=== PATIENT | female | born 1985 | race Caucasian/White ===

== ENCOUNTER → 2017-05-11 | Outpatient (CLI) | payer OTHER ==
[~2017-05-11] MED LIST: IOHEXOL 300 MG/ML 50 ML VIAL. INT UTERIN ONE
[2017-05-11 08:14] LABS: PREG TEST PT QUAL NEGATIVE (NEG)
--- NOTE | 2017-05-11 09:30 | RAD ---
Hysterosalpingogram HISTORY: Infertility COMPARISON: None TECHNIQUE: Patient was informed of the risks to include pain, infection, bleeding, allergic reaction. All questions were answered. Patient signed a written consent form for hysterosalpingogram. Patient was placed in a supine position on the fluoroscopy table. External skin surface was cleansed with Betadine solution. Speculum was inserted. Cervix was cleansed with Betadine solution. HSG catheter was inserted and secured with balloon inflation. Contrast was injected during fluoroscopic visualization, 8 cc of Omnipaque 300. The balloon was deflated and catheter removed. Speculum was removed. There were no immediate complications. FINDINGS: No focal filling defect is identified of the uterus. Both fallopian tubes are patent. Cervix is patent. There is somewhat round area of displacement of the pooling contrast in the left adnexal region. Fluoroscopy time: 30 seconds, 7 images. IMPRESSION: 1. Both fallopian tubes are patent. There is a round area displacement of pooling contrast in the left adnexal region, underlying adnexal lesion/cyst not excluded. Electronically signed by: Lane Taylor MD (05/11/2017 9:27 AM) [facility]
== END | disposition home or self-care (01) ==
LOC: RAD 07:37
PROVIDERS: ATTEND Obstetrics & Gynecology
DX: N97.1 Female infertility of tubal origin (principal); Z98.890 Other specified postprocedural states
CPT/HCPCS: 58340; 74740; 84703; Q9967

== ENCOUNTER 2017-11-23 09:39 | Emergency (ER) | payer OTHER ==
[~2017-11-23] VITALS: Ht 167.6 cm; Wt 121.6 kg
[2017-11-23 09:56] VITALS: BP 145/87
--- NOTE | 2017-11-23 09:56 | EKG ---
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
--- NOTE | 2017-11-23 10:08 | RAD ---
Chest, PA and Lateral: Technique: PA and lateral views of the chest were obtained. History: Chest pain, weakness, headache. Comparison: None. Findings: The heart and pulmonary vasculature appear within normal limits. The lungs are clear. The pleural margins are clear. Impression: No acute chest process is seen. Electronically signed by: Benjamin Riojas MD (11/23/2017 10:05 AM) [id number]
[2017-11-23 10:11] LABS: AMPHETAMINE/METHAMPHETAMINE NEG (NEG); BARBITURATES NEG (NEG); BENZODIAZEPINES NEG (NEG); CANNABINOIDS NEG (NEG); COCAINE NEG (NEG); METHADONE NEG (NEG); OPIATES NEG (NEG); PHENCYCLIDINE NEG (NEG)
[2017-11-23] MEDS ORDERED: FAMOTIDINE 20 MG/2 ML VIAL IVP ONE (10:15)
--- NOTE | 2017-11-23 10:35 | RAD ---
Right upper quadrant ultrasound dated 11/23/2017 10:05 AM. Comparison: None Clinical Indication: DX: Substernal and RUQ abd pain x 2 weeks IMP: Obese patient-limited study -Patient had a glass of milk 1 1/2 hrs ago-GB somewhat contracted but no stones seen . Findings: The liver is homogeneous in echotexture with no evidence of focal hepatic mass. Intrahepatic and extra hepatic biliary ducts are normal in caliber. The common bile duct measures 2.5 mm. Gallbladder appears somewhat contracted. No apparent shadowing stone or wall thickening. No pericholecystic fluid. Right kidney measures 10.6 cm in length without hydronephrosis. Left kidney was not imaged. Pancreas aorta and IVC not well evaluated due to overlying bowel gas. No significant ascites. IMPRESSION: Limited exam. No apparent acute abnormality. Electronically signed by: Compa Andersen MD (11/23/2017 10:31 AM) [facility]
[2017-11-23 10:40] LABS: BASO # 0.1 x10^3/uL (0.0-0.2); BASO % 1 % (0-3); EOS % 1 % (0-3); HEMATOCRIT 38.3 % (36.0-47.0); LYMPH # 1.2 x10^3/uL (1.0-4.8); LYMPH % 16 % (24-48); MEAN CORPUSCULAR HEMOGLOBIN 28 pg (25-35); MEAN CORPUSCULAR HGB CONC 34 g/dL (31-37); MEAN CORPUSCULAR VOLUME 82 fL (79-100); MONO # 0.5 x10^3/uL (0.0-1.1); MONO % 7 % (0-9); NEUT # 6.1 x10^3uL (1.8-7.7); NEUT % 77 % (31-73); PLATELET COUNT 195 x10^3/uL (140-400); RED BLOOD COUNT 4.67 x10^6/uL (3.50-5.40); RED CELL DISTRIBUTION WIDTH 13.8 % (11.5-14.5)
--- NOTE | 2017-11-23 10:52 | PHYS DOC ---
Past History Past Medical History: Other Alcohol Use: Rarely Drug Use: None Adult General Chief Complaint Chief Complaint: CHEST PAIN HPI HPI Patient is a 32 year old female who presents with complaining of intermittent episodes of left-sided chest pain for the last 2 weeks that usually happens once a day and last for several hours and improved with taking Powerade as an aching pain without radiation. Patient complaining of nausea and palpitations without shortness of breath, fever and chills, cough and congestion. Patient seen by her primary care physician and had negative labs and exam but she states she didn't feel better. Patient complaining of diarrhea since last night with 5 episodes of loose bowel. Patient complaining of nasal congestion and nonproductive cough for a few days. Patient also complaining of cold sore for the last few days and started on acyclovir. Patient does not have cardiac risk factors. Review of Systems Review of Systems Constitutional: Denies fever or chills [] Eyes: Denies change in visual acuity, redness, or eye pain [] HENT: Reports nasal congestion Respiratory: Reports cough Cardiovascular: No additional information not addressed in HPI [] GI: Denies abdominal pain, nausea, vomiting, bloody stools or diarrhea [] : Denies dysuria or hematuria [] Musculoskeletal: Denies back pain or joint pain [] Integument: Denies rash or skin lesions [] Neurologic: Denies headache, focal weakness or sensory changes [] Endocrine: Denies polyuria or polydipsia [] All other systems were reviewed and found to be within normal limits, except as documented in this note. Current Medications Current Medications Current Medications Medications (Trade) Dose Ordered Sig/Julien Start Time Stop Time Status Last Admin Dose Admin Famotidine (Pepcid Vial) 20 mg 1X ONCE 11/23/17 10:15 11/23/17 10:16 DC Multi-Ingredient Mouthwash/Gargle (Gi Cocktail) 20 ml 1X ONCE 11/23/17 10:45 11/23/17 10:46 UNV Allergies Allergies Allergies Coded Allergies Type Severity Reaction Last Updated Verified No Known Drug Allergies 05/11/17 No Physical Exam Physical Exam Constitutional: Well developed, well nourished, mild distress, non-toxic appearance, morbidly obese. [] HENT: Normocephalic, atraumatic, oropharynx moist, no oral exudates, nose normal , cold sore. [] Eyes: PERRLA, EOMI, conjunctiva normal, no discharge. [] Neck: Normal range of motion, no tenderness, supple, no stridor. [] Cardiovascular:Heart rate regular rhythm, no murmur [] Lungs & Thorax: Bilateral breath sounds clear to auscultation [] Abdomen: Bowel sounds normal, soft, no tenderness, no masses, no pulsatile masses. [] Skin: Warm, dry, no erythema, no rash. [] Back: No tenderness, no CVA tenderness. [] Extremities: No tenderness, no cyanosis, no clubbing, ROM intact, no edema. [] Neurologic: Alert and oriented X 3, normal motor function, normal sensory function, no focal deficits noted. [] Psychologic: Affect normal, judgement normal, mood normal. [] Current Patient Data Vital Signs Vital Signs Date Time Temp Pulse Resp B/P (MAP) Pulse Ox O2 Delivery O2 Flow Rate FiO2 11/23/17 09:56 97.9 73 18 98 Lab Results Laboratory Tests Test 11/23/17 09:45 Urine Opiates Screen Neg (NEG) Urine Methadone Screen Neg (NEG) Urine Barbiturates Neg (NEG) Urine Phencyclidine Screen Neg (NEG) Urine Amphetamine/Methamphetamine Neg (NEG) Urine Benzodiazepines Screen Neg (NEG) Urine Cocaine Screen Neg (NEG) Urine Cannabinoids Screen Neg (NEG) Urine Ethyl Alcohol Neg (NEG) EKG EKG EKG interpreted by me. EKG at 0 850 showed normal sinus rhythm at rate of 72, no acute ST and T-wave abnormalities Radiology/Procedures Radiology/Procedures [] Course & Med Decision Making Course & Med Decision Making Pertinent Labs and Imaging studies reviewed. (See chart for details) discharge: I've spoken with the patient and/or caregivers. I've explained the patient's condition, diagnosis and treatment plan based on information available to me at this time. I've answered the patient's and/or caregivers questions and addressed any concerns. The patient and/or caregivers have a good understanding the patient's diagnosis, condition and treatment plan as can be expected at this point. Vital signs have been stabilized. The patient's condition is stable for discharge from the emergency department. The patient will pursue further outpatient evaluation with her primary care provider or other designated consulting physician as outlined in the discharge instructions. Patient and/or caregivers are agreeable to this plan of care and follow-up instructions have been explained in detail. The patient and/or caregivers have received these instructions in written format and expressed understanding of these discharge instructions. The patient and her caregivers are aware that if any significant change in condition or worsening of symptoms should prompt him to immediately return to this of the closest emergency department. If an emergent department is not readily available I would encourage him to call 911. Dragon Disclaimer Dragon Disclaimer This electronic medical record was generated, in whole or in part, using a voice recognition dictation system. Departure Departure: Impression: Primary Impression: Musculoskeletal chest pain Additional Impressions: Viral syndrome Morbidly obese Disposition: HOME, SELF-CARE (at) Condition: IMPROVED Referrals: ALICIA ROWLEY MD (PCP) Patient Instructions: Musculoskeletal Pain, Viral Syndrome Additional Instructions: Drink plenty of liquids Follow-up with your primary care physician in 3-5 days Return to ER if not getting better Scripts Hydrocodone/Chlorphen P-Stirex (Tussionex Pennkinetic Susp) 115 Ml Ibeth.er.12h 5 ML PO BID, #60 ML Prov: GILA ROMERO MD 11/23/17 Problem Qualifiers GILA ROMERO MD Nov 23, 2017 10:52
[2017-11-23] MEDS ORDERED: LIDO:MAALOX 1:1 20 ML SINGLE DOSE. PO ONE (11:00)
[2017-11-23 11:03] LABS: ALBUMIN 3.4 g/dL (3.4-5.0); ALBUMIN/GLOBULIN RATIO 0.8 (1.0-1.7); CALCIUM 9.1 mg/dL (8.5-10.1); CREATININE 0.8 mg/dL (0.6-1.0); GFR 84.2; MAGNESIUM 2.3 mg/dL (1.8-2.4); TOTAL BILIRUBIN 0.3 mg/dL (0.2-1.0); TOTAL PROTEIN 7.9 g/dL (6.4-8.2)
[2017-11-23] MEDS ORDERED: HYDR115S2 PO (11:38)
== END 2017-11-23 11:58 | disposition home or self-care (01) ==
LOC: ER 09:39
DX: R07.89 Other chest pain (principal); B34.9 Viral infection, unspecified; E66.01 Morbid (severe) obesity due to excess calories; Z68.41 Body mass index [BMI] 40.0-44.9, adult
CPT/HCPCS: 36415; 71046; 76705; 80053; 80307; 82550; 83690; 83735; 83880; 84484; 85025; 85379; 93005; 99285-25; G0479

== ENCOUNTER 2017-11-25 12:45 | Emergency (ER) | payer OTHER ==
[~2017-11-25] VITALS: Ht 167.6 cm; Wt 121.6 kg
[2017-11-25 12:45] VITALS: BP 132/64
[~2017-11-25 12:45] MED LIST changes: +HYDR115S2 PO; -IOHEXOL 300 MG/ML 50 ML VIAL. INT UTERIN ONE
--- NOTE | 2017-11-25 13:16 | EKG ---
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
--- NOTE | 2017-11-25 13:25 | PHYS DOC ---
Past History Past Medical History: Other Alcohol Use: Rarely Drug Use: None Adult General Chief Complaint Chief Complaint: SHORTNESS OF BREATH HPI HPI Patient is a 32 year old female who presents with complaining of episode of chest pain for 2 weeks and one episode of palpitation that started up last night with chest pain and not feeling right. Patient was seen in this emergency room 2 days ago with the same complaint with negative evaluation including cardiac enzyme and labs and EKG and chest x-ray. Review of Systems Review of Systems Constitutional: Denies fever or chills [] Eyes: Denies change in visual acuity, redness, or eye pain [] HENT: Denies nasal congestion or sore throat [] Respiratory: Denies cough or shortness of breath [] Cardiovascular: No additional information not addressed in HPI [] GI: Denies abdominal pain, nausea, vomiting, bloody stools or diarrhea [] : Denies dysuria or hematuria [] Musculoskeletal: Denies back pain or joint pain [] Integument: Denies rash or skin lesions [] Neurologic: Denies headache, focal weakness or sensory changes [] Endocrine: Denies polyuria or polydipsia [] All other systems were reviewed and found to be within normal limits, except as documented in this note. Current Medications Current Medications Current Medications Medications (Trade) Dose Ordered Sig/Julien Start Time Stop Time Status Last Admin Dose Admin Hydroxyzine HCl (Atarax) 25 mg 1X STAT 11/25/17 13:10 11/25/17 13:11 UNV Allergies Allergies Allergies Coded Allergies Type Severity Reaction Last Updated Verified No Known Drug Allergies 05/11/17 No Physical Exam Physical Exam Constitutional: Well developed, well nourished, mild distress, non-toxic appearance, morbidly obese. [] HENT: Normocephalic, atraumatic Eyes: PERRLA, EOMI, conjunctiva normal, no discharge. [] Neck: Normal range of motion, no tenderness, supple, no stridor. [] Cardiovascular:Heart rate regular rhythm, no murmur [] Lungs & Thorax: Bilateral breath sounds clear to auscultation [] Abdomen: Bowel sounds normal, soft, no tenderness, no masses, no pulsatile masses. [] Skin: Warm, dry, no erythema, no rash. [] Back: No tenderness, no CVA tenderness. [] Extremities: No tenderness, no cyanosis, no clubbing, ROM intact, no edema. [] Neurologic: Alert and oriented X 3, normal motor function, normal sensory function, no focal deficits noted. [] Psychologic: Affect anxious, judgement normal, mood normal. [] Current Patient Data Vital Signs Vital Signs Date Time Temp Pulse Resp B/P (MAP) Pulse Ox O2 Delivery O2 Flow Rate FiO2 11/25/17 12:45 97.8 71 20 99 Room Air EKG EKG EKG interpreted by me. EKG at 1300 showed normal sinus rhythm at rate of 61, no ST and T-wave abnormalities Radiology/Procedures Radiology/Procedures [] Course & Med Decision Making Course & Med Decision Making Evolution of patient in ER showed 5-year-old female patient presented to ER for the second time complaining of palpitation and chest pain. Patient had unremarkable EKG and physical exam and did not want of labs. Patient instructed to follow-up with her primary care physician to throw for drop forger for possible Holter monitor. Hydroxyzine prescription was given for anxiety. Dragon Disclaimer Dragon Disclaimer This electronic medical record was generated, in whole or in part, using a voice recognition dictation system. Departure Departure: Impression: Primary Impression: Palpitation Additional Impressions: Musculoskeletal chest pain Anxiety Morbid obesity Disposition: HOME, SELF-CARE (at 1329) Condition: STABLE Referrals: ALICIA ROWLEY MD (PCP) Patient Instructions: Anxiety and Panic Attacks, Chest Wall Pain, Palpitations Additional Instructions: Follow-up with your primary care physician in 2 days for referral to a drop forger for possible halter monitor and echocardiography Return to ER if not getting better Scripts Hydroxyzine Hcl (HYDROXYZINE HCL) 25 Mg Tablet 1 TAB PO TID PRN for ANXIETY, #30 TAB Prov: GILA ROMERO MD 11/25/17 Problem Qualifiers GILA ROMERO MD Nov 25, 2017 13:25
[2017-11-25] MEDS ORDERED: hydrOXYzine HCL 25 MG TABLET PO ONE (13:30)
[2017-11-25] MEDS ORDERED: HYDR25TA PO (13:31)
== END 2017-11-25 13:45 | disposition home or self-care (01) ==
LOC: ER 12:45
DX: F41.9 Anxiety disorder, unspecified (principal); R07.89 Other chest pain; E66.01 Morbid (severe) obesity due to excess calories; Z68.41 Body mass index [BMI] 40.0-44.9, adult
CPT/HCPCS: 93005; 99283